=== PATIENT | male | born 1960 | race Caucasian/White ===

== ENCOUNTER → 2016-04-28 | Outpatient (CLI) | payer MEDICAID ==
[~2016-04-28] MED LIST: AUGMENTIN 875-1 EACH PO; CLARITIN 10MG T10 MG PO; CYCLOBENZAPRINE10 M3 PO; FLONASE 50 MCG16 GM; GABAPENTIN300 M1 PO; HYDROCODONE BIT1 T39 PO; HYDROCODONE-APA1 TA1 PO; HYDROCODONE-APA1 TA2 PO; LISINOPRIL10 MG PO; LORTAB 5/500 501 TAB PO; MEDROL 4MG. DOSE4 MG PO; NEURONTIN600 M1 PO; NORCO 325 MG-51 TAB PO; PREDNISONE 20MG20 MG PO; REGLAN5 MG/ML PO; XANAX 1MG TABLET1 MG PO; ZITHROMAX Z PA250 MG PO; ZITHROMAX Z-PA250 M2 PO; ZOFRAN ODT4 MG PO
[2016-04-28 14:20] LABS: BUN 12 mg/dL (7-18)
[2016-04-28 14:42] LABS: GFR (ESTIMATED) 70 ML/MIN (>60)
[2016-04-28 17:25] LABS: HEMOGLOBIN 14.1 g/dL (14.1-18.0); LYMPH % 36.7 % (10-50)
[2016-04-28 17:26] LABS: LYMPH # 1.5 K/mm3 (0.7-4.5)
== END ==
LOC: LAB 12:51
PROVIDERS: Surgery
DX: Z01.810 Encounter for preprocedural cardiovascular examination (principal); Z01.812 Encounter for preprocedural laboratory examination

== ENCOUNTER 2016-07-13 10:46 | Emergency (ER) | payer MEDICAID ==
[~2016-07-13] VITALS: Ht 175.3 cm; Wt 83.9 kg
[~2016-07-13 10:46] MED LIST changes: -CLARITIN 10MG T10 MG PO; -FLONASE 50 MCG16 GM; -LISINOPRIL10 MG PO; -MEDROL 4MG. DOSE4 MG PO; -ZITHROMAX Z PA250 MG PO; -ZOFRAN ODT4 MG PO
[2016-07-13] MEDS ORDERED: MEDROL 4MG. DOSE4 MG PO (11:07)
[2016-07-13] MEDS ORDERED: ZITHROMAX Z PA250 MG PO (11:07)
[2016-07-13] MEDS ORDERED: ZOFRAN ODT4 MG PO (11:07)
--- NOTE | 2016-07-13 11:07 | Urgent Treatment Center Report ---
History of Present Issue Date/Time Seen by Provider 07/13/16 1059 Visit Reason Pt arrived:Walked Presenting Problem:PT C/O NAUSEA X4 DAYS AND UNABLE TO GET INTO PCP. Location if Accident: Onset of symptoms date/time:/ or onset unknown for:MEDICAL HX UNKNOWN Have you (or family members/close friends) recently traveled outside the [place]? N If Yes, where/when: Have you had exposure to infectious disease within the past month? TB? Other? Specify: Patient state that he has been having nausea epecially in the mornings when he wakes up. States that he has been having some drainage and pain from his sinuses. States that he just feels bad and he thought he would get feeling better but now he is on day 4 and he isn't so he came in to get checked ALLERGIES Coded Allergies: codeine (S-BLISTERING WELTS 04/26/15) Home Medications Active Scripts HYDROCODONE/ACETAMINOPHEN (Hydrocodon-Acetaminoph 7.5-325) 1 TAB PO TID #90 TAB Prov: 12/14/15 Gabapentin (Neurontin) 600 MG PO TID #90 TAB Prov: 12/14/15 Reported Medications Alprazolam (Xanax 1MG) 1 MG PO BID History Medical History General CAD? No Angina: Yes CO: No Hypertension? No Hyperlipidemia? No CHF? No DVT? No PE? No COPD? No Asthma? No Anemia? No GERD? No Gastric ulcers? No GI Bleed? No Hernia? No Thyroid Problems? No Hypothyroidism? No CVA? No Seizures? No Diabetes? No UTI? No Stones? No BPH? No GB Disease: No Nephritic Syndrome? No Asplenia? No Hepatitis? No Sickle Cell Disease? No Arthritis? Yes Migraines? No Cataracts? No Glaucoma? No MRSA? No HIV? No TB? No Anxiety? Yes Depression? No Cancer? No More? No Immunization HX DT/Tetanus 2006 Surgical Hx Previous Surgery?Y SHOULDER Social History Smoking Hx Smoker: Current Every Day Smoker Tobacco: Yes Type Cigarettes Packs/day N/A Alcohol Alcohol: No Review of Systems All Other Systems Reviewed and Negative ENT nose discharge. Gastrointestinal nausea Physical Exam Vital Signs Vital Signs Date Time Temp Pulse Resp B/P Pulse O2 O2 Flow FiO2 Ox Delivery Rate 07/13 1054 98.0 88 22 133/90 99 General Appearance Patient appears ill, sitting on exam table Ear, Nose, Throat sinus pain/drainage, nasal congestion, Pain noted over maxillary sinus area with greenish color mucous, throat slightly red irritated with drainage noted in back of throat Respiratory Status Yes: trachea midline, chest symmetrical, non tender chest. No: respiratory distress. 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 No Departure Departure Time of Disposition 1104 Disposition DC Home or Self Care(routine) Clinical Impression Primary Impression: Upper respiratory infection Qualifiers: URI type: unspecified URI Qualified Code: J06.9 - Acute upper respiratory infection, unspecified Secondary Impressions: Nausea Condition STABLE Referrals Barbara ROBERTS,Law Starr (Family) Patient Instructions DI for Nausea -- Adult, DI for Sinusitis Additional Instructions Drink plenty of fluids Over the counter Motrin or Tylenol as needed for fever or pain Follow up with family doctor if no improvement in symptoms Return if needed Discharge Counseling Counseled pt/family regarding diagnosis, medications/RX, home care, follow up needs Prescriptions Current Visit Scripts Azithromycin (Zithromycin (Z-TANI) 250MG Tab) 250 MG PO DAILY #6 TAB TAKE TWO (2) TABLETS ON DAY 1, THEN ONE (1) TABLET DAY #2 THRU #5 Methylprednisolone (Medrol Dose Tani) 4 MG PO UD #1 TANI TAKE DIRECTED ON PACKAGING Ondansetron (Zofran 4MG Odt) 4 MG PO Q6HP PRN NAUSEA AND VOMITING #20 TAB at 1110
[2016-07-13 11:15] VITALS: BP 133/90
[2016-07-20] MEDS ORDERED: LISINOPRIL10 MG PO (09:29)
[2016-07-20] MEDS ORDERED: FLONASE 50 MCG16 GM (10:00)
[2016-07-20] MEDS ORDERED: ZOFRAN ODT4 MG PO (10:00)
[2016-07-20] MEDS ORDERED: CLARITIN 10MG T10 MG PO (10:00)
== END 2016-07-13 11:17 | disposition home or self-care (01) ==
LOC: UTC 10:46
DX: J06.9 Acute upper respiratory infection, unspecified (principal); Z72.0 Tobacco use

== ENCOUNTER → 2016-08-04 | Outpatient (CLI) | payer MEDICAID ==
[~2016-08-04] MED LIST changes: +CLARITIN 10MG T10 MG PO; +FLONASE 50 MCG16 GM; +LISINOPRIL10 MG PO; +MEDROL 4MG. DOSE4 MG PO; +ZITHROMAX Z PA250 MG PO; +ZOFRAN ODT4 MG PO
--- NOTE | 2016-08-04 13:51 | RADIOLOGY REPORT PS360 ---
US RUQ-(ABD LTD)1ORGAN/QUAD/FU HISTORY: The reviewed the RUQ PAIN ORDERING PHYSICIAN: Law Jimenez MD PATIENT AGE: 55 years COMPARISON: None FINDINGS: PANCREAS:Unremarkable as visualized LIVER:No focal liver lesions demonstrated. Homogeneous echogenicity. No intrahepatic biliary ductal dilatation evident RIGHT KIDNEY:Unremarkable. Normal size and echogenicity. No hydronephrosis GALLBLADDER:No gallstones or pericholecystic fluid. There is mild thickening of the gallbladder wall nonspecific. Common bile duct is normal at 3 mm. IMPRESSION: Mild gallbladder wall thickening otherwise negative right upper quadrant ultrasound
== END ==
LOC: RAD 08:00
DX: R10.11 Right upper quadrant pain (principal)

== ENCOUNTER → 2016-12-19 | Outpatient (CLI) | payer MEDICAID ==
[~2016-12-19] MED LIST changes: +AMOXICILLIN875 MG PO; +BOT OP; +WELLBUTRIN 100100 MG PO; +ZOFRAN4 MG PO; +[UNRECOGNIZED DRUG - OTHER] OP
[2016-12-19 19:12] LABS: AMPHETAMINES/METAMPHETAMINES NEGATIVE ng/mL (<1000)
== END ==
LOC: LAB 17:00
PROVIDERS: Emergency Medicine
DX: Z79.899 Other long term (current) drug therapy (principal)

== ENCOUNTER → 2017-01-04 | Outpatient (CLI) | payer MEDICAID ==
--- NOTE | 2017-01-04 15:26 | RADIOLOGY REPORT PS360 ---
CT SINUS (MAX-FACIAL W/O CONT) COMPARISON: CT scan paranasal sinuses 01/20/2016 HISTORY: Nasal septal deviation TECHNIQUE: Multiaxial scans obtained of the maxillofacial bones and paranasal sinuses. Sagittal and coronal reformats were evaluated as well. FINDINGS: There is minimal focal mucoperiosteal thickening posterior aspects of both maxillary sinuses. There is moderate leftward bowing of the mid nasal septum. The O MU is patent bilaterally. There is a agustin bullosa right middle turbinate. Ethmoid and frontal sinuses are clear and the sphenoid sinuses clear. The mastoids are clear. IMPRESSION: Minimal chronic inflammatory changes of the maxillary sinuses, stable nasal septal deviation is noted
== END ==
LOC: RAD 13:51
DX: S03 Dislocation and sprain of joints and ligaments of head (principal)

== ENCOUNTER → 2017-01-19 | Outpatient (CLI) | payer MEDICAID ==
[~2017-01-19] MED LIST changes: +IBUPROFEN800 MG PO
[2017-01-19 13:24] LABS: AMPHETAMINES/METAMPHETAMINES NEGATIVE ng/mL (<1000)
== END ==
LOC: LAB 12:14
PROVIDERS: Emergency Medicine
DX: Z79.899 Other long term (current) drug therapy (principal)

== ENCOUNTER → 2017-02-16 | Outpatient (CLI) | payer MEDICAID ==
[2017-02-16 12:27] LABS: AMPHETAMINES/METAMPHETAMINES NEGATIVE ng/mL (<1000)
== END ==
LOC: LAB 11:43
PROVIDERS: Emergency Medicine
DX: Z79.899 Other long term (current) drug therapy (principal)

== ENCOUNTER 2017-03-07 16:32 | Emergency (ER) | payer MEDICAID ==
[~2017-03-07] VITALS: Ht 175.3 cm; Wt 86.2 kg
--- OUTSIDE RECORDS SUMMARY | 2017-03-07 16:45 | External Medical Summary Rpt | CCD ---
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 013 .0 ed 18:35 MCV RBC 03-18-2 90.8 fl 82.2-97 complet 013 .8 ed 18:35 MCH RBC 03-18-2 31.1 pg 27-31.2 complet Qn 013 ed Auto 18:35 MEAN 03-18-2 34.2 31.8-35 complet CORPUSC 013 g/dl .4 ed ULAR 18:35 HGB CONC RDW RBC -18-2 13.4 % 11.5-17 complet Auto 013 .5 ed 18:35 Platele 03-18-2 219 142-424 complet t Bld 013 K/mm3 ed Ql 18:35 Manual MEAN -18-2 7.3 fl 7.4-10. complet PLATELE 013 4 ed T 18:35 VOLUME Granulo -18-2 80.2 % 37.0-80 complet cytes 013 .0 ed Fr Bld 18:35 Auto LYMPH % 03-18-2 15.3 % 10-50 complet 013 ed 18:35 Monocyt 03-18-2 4.0 % 1.7-9.3 complet es Fr 013 ed Bld 18:35 Auto Eosinop 03-18-2 0.4 % 0.1-12. complet hil Fr 013 0 ed Bld 18:35 Auto Basophi 03-18-2 0.2 % 0.1-2.0 complet ls Fr 013 ed Bld 18:35 Auto Granulo 03-18-2 9.8 1.3-8.0 complet cytes # 013 K/mm3 ed Bld 18:35 Auto Lymphoc 03-18-2 1.9 0.7-4.5 complet ytes Fr 013 K/mm3 ed Bld 18:35 Auto Monocyt 03-18-2 0.5 0.1-1.0 complet es # 013 K/mm3 ed Bld 18:35 Auto Eosinop 18-2 0.1 0.0-0.4 complet hil # 013 K/mm3 ed Bld 18:35 Auto Basophi 18-2 0.0 0-0.2 complet ls # 013 K/MM3 ed Bld 18:35 Auto Encounters Encounter Start End Date Code Location Performer Type Date [facility] - 7 7 [facility] - 7 7 [facility] - 7 7 [facility] - 7 7 [facility] - 7 7 [facility] - 7 7 [facility] - [address] [facility] - 7 7 [facility] - 7 7 [facility] - [address] [facility] - 7 7 [facility] - 7 7 [facility] - 7 7 [facility] - 7 7 [facility] - 7 7 [facility] - 7 7 [facility] - 7 7 [facility] - 7 7 [facility] - 7 7 [facility] - 7 7 [facility] - 7 7 [facility] - 7 7 [facility] - [address] [facility] - 6 6 [facility] - 6 6 [facility] - 6 6 [facility] - 6 6 [facility] - 6 6 [facility] - 6 6 [facility] - 6 6 [facility] - 6 6 [facility] - 6 6 [facility] - 5 5 [facility] - 5 5 [facility] - 5 5 [facility] - 5 5 [facility] - 5 5 [facility] - 5 5 [facility] - 5 5 [facility] - 5 5 [facility] - 4 4 [facility] - 4 4 [facility] - 4 4 [facility] - 4 4 [facility] Emergency CHANTALE Jimenez MD (ER) 3 19:01 3 20:44 [facility]
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
--- OUTSIDE RECORDS SUMMARY | 2017-03-07 16:49 | External Medical Summary Rpt | CCD ---
Author Author , KACY Lanza KACY Address Unknown Phone [email or web address] Team Providers Care Photographic Equipment Inspector Name Role Phone [employer] Unavailable Unavailable INC, [employer] EDOUARD BLACKWOOD MD, PSC, Unavailable Unavailable EDOUARD BLACKWOOD MD, PSC [facility] Un[facility] Unavailable SERVICE, [facility] Unavailable Unavailable INC, [facility] Unavailable Unavailable [facility]PITAL P, [facility] RENDON PALMIRA, JULIETA PALMIRA Unavailable Unavailable [facility], Unavailable Unavailable [facility] Un[facility], [facility], [facility] HENNESSY, HENNESSY Unavailable Unavailable ALEXEY HOLM MD Unavailable Unavailable [facility], Unavailable Unavailable [facility], [facility] SC[facility] AN[facility], SCIJENNY Unavailable Unavailable [facility]G [facility] Unavailable Unavailable HOSPITALS, [facility] Purpose Continuity of Care Document - 09-24-2013 through 2016 Problems Code Diagnosis DOS Provider Status 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 [id number] OTHER LONG 01-19-2017 [facility] TERM PHYSICIANS CURRENT GROUP DRUG THERAPY H6903 PATULOUS 01-11-2017 [facility] EUSTACHIAN TUBE BILATERAL H833X3 NOISE 01-11-2017 [facility] EFFECTS ON PHYSICIANS INNER EAR GROUP BILATERAL H9313 TINNITUS 01-11-2017 [facility] BILATERAL PHYSICIANS GROUP J320 CHRONIC 01-11-2017 [facility] MAXILLARY PHYSICIANS SINUSITIS GROUP J342 DEVIATED 01-11-2017 [facility] NASAL PHYSICIANS SEPTUM GROUP [id number] DISLOCATION 01-04-2017 [facility] CART NOSE INC SUBSEQUENT ENCNTR J322 CHRONIC 12-25-2016 [facility] ETHMOIDAL PHYSICIANS SINUSITIS GROUP J321 CHRONIC 12-04-2016 [facility] FRONTAL [facility] SINUSITIS INC R5383 OTHER 11-20-2016 [facility] FATIGUE PHYSICIANS GROUP B349 VIRAL 11-07-2016 [facility]CTION [facility] UNSPECIFIED INC R0602 SHORTNESS 11-07-2016 [place] [facility] R0989 OTH SPEC SX 11-07-2016 [place] [facility] CIRC & RESP SYS Z720 TOBACCO USE 11-07-2016 [facility] I10 ESSENTIAL 10-25-2016 [facility] PRIMARY PHYSICIANS HYPERTENSIO GROUP N M792 NEURALGIA 10-25-2016 [facility] AND PHYSICIANS NEURITIS GROUP UNSPECIFIED G5603 CARPAL 10-16-2016 [facility] BILATERAL UPPER LIMBS H1013 ACUTE 10-11-2016 [facility]IC [facility] CONJUNCTIVI INC TIS BILATERAL H6122 IMPACTED 10-11-2016 [facility] LEFT EAR INC G77508 ACUTE & 10-11-2016 [facility]UTE [facility] ALLERGIC INC OTITS MEDIA LEFT EAR G5622 LESION OF 08-21-2016 [facility]PP[facility]ALS LIMB G5623 LESION OF 08-21-2016 [facility] SERV BILATERAL FOUNDATION UPPER LIMBS W75348 PAIN IN 08-21-2016 [facility] LEFT WRIST SERV FOUNDATION E05314 MUSCLE 08-21-2016 [facility] RIGHT HAND R200 ANESTHESIA 08-21-2016 [facility] SKIN [facility] R202 PARESTHESIA 08-21-2016 [facility] SKIN [facility] [id number] FALL ON AND 08-21-2016 [facility] SERV LADDER FOUNDATION SUBSEQUENT ENCOUNTER R1011 RIGHT UPPER 08-04-2016 [facility] R45947 PAIN IN 07-31-2016 [facility] LEFT HAND PHYSICIANS GROUP J309 ALLERGIC 07-20-2016 [facility]IS [facility] UNSPECIFIED INC R05 COUGH 07-20-2016 [facility] INC J069 ACUTE UPPER 07-13-2016 [facility] RESPIRATORY INC INFECTION UNSPECIFIED J99715 PAIN IN 07-03-2016 [facility] LEFT ARM PHYSICIANS GROUP G5602 CARPAL 06-26-2016 [employer] SY[employer] S INC LEFT UPPER LIMB R208 OTHER 06-26-2016 [facility] DISTURBANCE PHYSICIANS S OF SKIN GROUP SENSATION R079 CHEST PAIN 06-16-2016 [facility] UNSPECIFIED PHYSICIANS GROUP 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 UNSPECIFIED K635 POLYP OF 05-04-2016 [facility] COLON PHYSICIANS GROUP Z1211 ENCOUNTER 05-04-2016 [facility] SCREENING PHYSICIANS MALIGNANT GROUP NEOPLASM OF COLON O21999 ENCOUNTER 04-28-2016 [facility] AL CARIOVASCUL AR EXAM Q99392 ENCOUNTER 04-28-2016 [facility] P AL LABORATORY EXAM G8929 OTHER 03-25-2016 [facility] J690 PNEUMONITIS 03-25-2016 [facility] HOSPITALS OF FOOD AND VOMIT M545 LOW BACK 03-25-2016 [facility] R000 TACHYCARDIA 03-25-2016 [facility] UNSPECIFIED SERVICE R4182 ALTERED 03-25-2016 [facility] UNSPECIFIED R918 OTHER 03-25-2016 [facility] NONSPECIFIC SERV ABNORMAL FOUNDATION FINDING OF LUNG FIELD [id number] POISONING 03-25-2016 [facility] DERIVATIVES ACC INIT ENC [id number] POISONING 03-25-2016 [facility] OTHER SERV OPIOIDS [facility]OUNDATION ACCIDENTAL INIT ENC [id number] POISONING 03-25-2016 [facility] SYNTH MEDICAL NARCOTICS IMAGING ASS UNDETERM INIT ENC [id number] POISONING 03-25-2016 [facility] P UNDETERM INITIAL ENCNTR [id number] POISONING 03-25-2016 [facility] ACCIDENTAL INITIAL ENC [id number] POISONING 03-25-2016 [facility] P UNDETERM INITIAL ENC C748Y4S POISON OTH 03-25-2016 [facility] ANTIEPIL AMBULANCE SEDAT-HYPNO SERVICE T RX ACC INIT ENC [id number] POISN UNS 03-25-2016 [facility] RX MEDS BIO SERV SUBSTANCE FOUNDATION UNDET INIT ENC D6131ID UNSPECIFIED 01-27-2016 [place] [facility] WRIST HAND IMAGING ASS FINGERS INITIAL Y45678 HORDEOLUM 01-24-2016 RENDON PALMIRA EXTERNUM RIGHT UPPER EYELID O52782 EDEMA OF 01-21-2016 [facility] RIGHT ORBIT PHYSICIANS GROUP M7989 OTHER 01-21-2016 [facility] SPECIFIED PHYSICIANS SOFT TISSUE GROUP DISORDERS G59104 CELLULITIS 01-20-2016 [facility] RIGHT PHYSICIANS, [facility] PLLC R51 HEADACHE 01-20-2016 [facility] M5416 RADICULOPAT 12-14-2015 [facility] LUMBAR MEM HOS[facility] REGION INC M4806 SPINAL 09-27-2015 EDOUARD BATEMANX, STENOSIS , [facility] LUMBAR REGION M5136 OT 09-14-2015 [facility] INTERVERTEB [employer] RAL DISC S INC DEGEN LUMBAR REGION M519 UNS THOR 09-14-2015 [facility] THORACOLUMB [employer] AR S INC LUMBOSACRAL IV DISC D/O M4726 OT 09-07-2015 [facility] SPONDYL[facility]IS [facility] W/RADICULOP ATHY LUMBAR REGION Z0389 ENCOUNTER 09-07-2015 [place] OBSERV OT MEDICAL SUSPCT DZ & IMAGING ASS COND RULED OUT E663 OVERWEIGHT 08-23-2015 [facility] G629 POLYNEUROPA 08-23-2015 [facility] THY PHYSICIANS UNSPECIFIED GROUP D49573L UNSPECIFIED 07-20-2015 [facility]OUND [facility] LEFT FOOT INC INITIAL ENCNTR M7061 TROCHANTERI 05-18-2015 [facility]IS [facility] RIGHT HIP INC M7062 TROCHANTERI 05-18-2015 [facility] LEFT HIP INC M7060 TROCHANTERI 04-26-2015 [facility] UNSPECIFIED INC HIP 92991 DEGEN 12-24-2014 [facility] LUMBAR/LUMB [facility] OSACRAL INC INTERVERTEB RAL DISC 4139 OTHER AND 10-20-2014 [facility] UNSPECIFIED [facility] ANGINA INC PECTORIS 4619 ACUTE 10-20-2014 [facility] SINUSITIS, MEM HOSP UNSPECIFIED INC 4739 UNSPECIFIED 10-20-2014 [facility] SINUSITIS PHYSICIANS, [facility] 7840 HEADACHE 10-20-2014 [facility] PHYSICIANS, [facility] 75950 ENTHESOPATH 10-09-2014 [facility] Y OF PHYSICIANS, UNSPECIFIED [facility] SITE 41393 OTHER 10-09-2014 [facility] TENOSYNOVIT [facility] IS OF HAND INC AND WRIST 7244 THORACIC/JEAN PAUL 10-05-2014 ALEXEY CARTER MD NEURITIS/RA DICULITIS UNSPEC 7265 ENTHESOPATH 10-05-2014 ALEXEY BLACKWOOD Y OF HIP MD REGION 21177 PRECORDIAL 08-13-2014 [facility] PAIN PHYSICIANS GROUP 78259 ABDOMINAL 07-30-2014 [facility] PAIN, PHYSICIANS EPIGASTRIC GROUP 7242 LUMBAGO 06-30-2014 [employer] S INC V573 CARE 06-30-2014 [facility]VING [facility] [place] [address] IMPOTENCE 05-22-2014 [facility] OF ORGANIC PHYSICIANS ORIGIN GROUP 52836 DISPLCMT 05-22-2014 [facility] 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 9300 FOREIGN 03-10-2014 JULIETA PALMIRA BODY IN CORNEA 7945 NONSPECIFIC 11-04-2013 [facility] RESULTS INC THYROID FUNCT STUDY 3674 PRESBYOPIA 11-01-2013 AUGIE ADAM 66408 PAIN IN 10-21-2013 [facility] JOINT, SITE MEM HOSP INC UNSPECIFIED V571 OTHER 09-30-2013 [facility] THERAPY INC Medications Na ND Rx Da Fi Fi [...] 10 1- 1- 00 06 TO ve WI 00 20 20 09 WN ED 50 [...] SL NT HI AN A GA 68 10 11 12 30 00 HO Ac BA 00 -1 -1 0. 00 ME ti PE 10 8- 7- 00 04 TO ve NT 00 20 20 0 02 WN IN 70 17 17 46 3 98 PH 80 AR 0 MA MG CY TA OF BL ET CY NT HI AN A LI 68 10 11 30 30 00 HO Ac SI 00 -1 -1 .0 00 ME ti NO 10 8- 7- 00 06 TO ve WI 26 20 20 09 WN IL 80 [...] 17 17 49 E 6 80 PH WI AR OP MA CY 50 OF MC [...] CY BL NT ET HI AN A GA 09 10 12 30 00 HO Ac BA 00 -1 -2 0. 00 ME ti PE 10 9- 0- 00 04 TO ve NT 00 20 20 0 02 WN IN 70 17 17 46 3 98 PH 80 AR 0 MA MG CY TA OF BL ET CY NT HI AN A BU 00 09 10 60 30 00 HO Ac WI 59 -1 -2 .0 00 ME ti OP 13 9- 0- 00 06 TO ve IO 54 20 20 09 WN N 10 17 17 45 HC 5 83 PH L AR SR MA CY 15 0 OF MG CY TA NT BL HI ET AN A HY 00 09 10 [address] 59 -2 -2 .0 00 ME ti OC 12 0- 0- 00 02 TO ve OD 60 20 20 01 WN ON 50 17 17 46 -A 1 70 PH CE AR TA MA [place] CY NO PH OF 7. CY 5- NT 32 HI 5 AN A ME 00 09 10 21 6 00 EA Ac TH 78 -0 -[address] ti YL 15 4- 6- 00 00 SI ve WI 02 20 20 50 DE ED 20 [...] NT ET HI AN A IN C LI 09 10 30 30 00 HO Ac SI 00 -0 -0 .0 00 ME ti NO 10 6- 6- 00 06 TO ve WI 26 20 20 09 WN IL 80 17 17 13 8 66 PH 10 AR MA MG CY TA OF BL ET CY NT HI AN A GA 08 09 12 30 00 HO Ac BA 00 -2 -2 0. 00 ME ti PE 10 1- 2- 00 04 TO ve NT 00 20 20 0 02 WN IN 70 17 17 38 3 84 PH 80 AR 0 MA MG CY TA OF BL ET CY NT HI AN A BU 08 09 60 30 00 HO Ac WI 00 -2 -2 .0 00 ME ti [...] 1 27 PH CE AR TA MA [place] CY NO PH OF 7. CY 5- NT 32 HI 5 AN A FL 50 08 09 16 30 00 HO Ac UT 38 -0 -0 .0 00 ME ti IC 30 8- 8- 00 06 TO ve 70 20 20 09 WN ON 01 17 17 20 E 6 60 PH WI AR OP MA CY 50 OF MC [...] BL CY ET NT HI AN A LI 68 07 08 30 30 00 HO Ac SI 00 -2 -2 .0 00 ME ti NO 10 0- 5- 00 06 TO ve WI 26 20 20 08 WN IL 80 17 17 60 8 51 PH 10 AR MA MG CY TA OF BL ET CY NT HI AN A GA 68 07 [...] 1 17 PH CE AR TA MA [place] CY NO PH OF 7. CY 5- NT 32 HI 5 AN A AM 00 07 08 20 [...] 17 17 05 E 6 60 PH WI AR OP MA CY 50 OF MC G CY SP NT RA HI Y AN A HY 00 06 07 [address] 59 -2 -2 .0 00 ME ti OC 12 7- 8- 00 02 TO ve OD 60 20 20 01 WN ON 50 17 17 39 -A 1 93 PH CE AR TA MA [place] CY NO PH OF 7. CY 5- [...] 17 17 54 E 6 50 PH WI AR OP MA CY 50 OF MC G CY SP NT RA HI Y AN A LI 68 05 06 30 30 00 HO Ac SI 00 -3 -3 .0 00 ME ti NO 10 0- 0- 00 06 TO ve WI 26 20 20 08 WN IL 80 [...] 1 70 PH CE AR TA MA [place] CY NO PH OF 7. CY 5- [...] ET CY NT HI AN A LI 68 05 06 30 30 00 HO Ac SI 00 -0 -0 .0 00 ME ti NO 10 1- 2- 00 06 TO ve WI 26 20 20 08 WN IL 80 [...] 1 34 PH CE AR TA MA [place] CY NO PH OF 7. CY 5- NT 32 HI 5 AN A LO 45 04 05 30 [...] 17 17 54 E 6 50 PH WI AR OP MA CY 50 OF MC [...] 10 3- 9- 00 06 TO ve WI 00 20 20 08 WN ED 50 17 17 50 NI 1 06 PH SO AR LO MA NE CY 4 OF MG CY DO NT SE HI PK AN A LI 68 04 05 30 30 00 HO Ac SI 00 -0 -0 .0 00 ME ti NO 10 4- 5- 00 06 TO ve WI 26 20 20 08 WN IL 80 [...] SL NT HI AN A HY 00 04 05 [address] 60 -0 -0 .0 00 ME ti OC 33 4- 5- 00 02 TO ve OD 89 20 20 01 WN ON 12 17 17 33 -A 8 13 PH CE AR TA MA [place] CY NO PH OF 7. CY 5- NT 32 HI 5 AN A GA 68 03 04 12 [...] 8 67 PH CE AR TA MA [place] CY NO PH OF 7. CY 5- [...] 00 6- 7- 00 06 TO ve WI 51 20 20 08 WN IL 40 17 17 27 3 07 PH 10 AR MA MG CY TA OF BL ET CY NT HI AN A GA 02 03 12 30 00 HO Ac [...] 8 02 PH CE AR TA MA [place] CY NO PH OF 7. CY 5- [...] CY NT SO HI LN AN A GA 01 02 12 30 00 HO Ac BA 00 -2 -2 0. 00 ME ti PE 10 3- 4- 00 06 TO ve NT 00 20 20 0 07 WN IN 70 17 17 99 3 79 PH 80 AR 0 MA MG CY TA OF BL ET CY NT HI AN A ME 68 01 02 30 30 00 HO Ac LO 38 -2 -2 .0 00 ME ti XI 20 3- 4- 00 06 TO ve CA 05 20 20 07 WN M 10 17 17 99 15 5 80 PH AR MG MA CY TA BL OF ET CY NT HI AN A LI 00 01 02 30 30 00 HO Ac SI 18 -1 -1 .0 00 ME ti NO 50 7- 7- 00 06 TO ve WI 61 20 20 07 WN IL 01 17 17 74 0 97 PH 10 AR MA MG CY TA OF BL ET CY NT HI AN A GA 01 02 45 15 00 HO Ac BA 00 -1 -1 .0 00 ME ti PE 10 0- 0- 00 06 TO ve NT 00 20 20 07 WN IN 60 17 17 92 3 47 PH 60 AR 0 MA MG CY TA OF BL ET CY NT HI AN A LI 00 12 01 30 30 00 HO Ac SI 18 -1 -1 .0 00 ME ti NO 50 3- 3- 00 06 TO ve WI 61 20 20 07 WN IL 01 16 17 74 0 97 PH 10 AR MA MG CY TA OF BL ET CY NT HI AN A ES 68 12 01 30 30 00 HO Ac CI 00 -1 -1 .0 00 ME ti TA 10 3- 3- 00 06 TO ve LO 19 20 20 07 WN WI 70 16 17 74 AM 3 98 [...] 12 01 63 21 00 HO Ac WI 76 -1 -1 .0 00 ME ti [...] 8 02 PH CE AR TA MA [place] CY NO PH OF 7. CY 5- NT 32 HI 5 AN A Encounters Encounter Start End Date Code Location Performer Type Date [facility] [address] [facility] 7 7 [facility] 7 7 [facility] - 7 7 [facility] - 7 7 [facility] - 7 7 [facility] - 7 7 [facility] - 7 7 [facility] - 7 7 [facility] - 7 7 [facility] - 7 7 [facility] - 7 7 [facility] - 7 7 [facility] - 7 7 [facility] - 7 7 [facility] 6 [facility] - 6 6 [facility] - 6 6 [facility] - 6 6 [facility] - 6 6 [facility] - 6 6 [facility] - 6 6 [facility] - 6 6 [facility] - 6 6 [facility] - 5 5 [facility] - 5 5 [facility] - 5 5 [facility] - 5 5 [facility] - 5 5 [facility] - 5 5 [facility] - 5 5 [facility] - 5 5 [facility] - 4 4 [facility] - 4 4 [facility] - 4 4 [facility] - 4 4 [facility]
--- OUTSIDE RECORDS SUMMARY | 2017-03-07 16:49 | External Medical Summary Rpt | CCD ---
Author Author , KACY Lanza KACY Address Unknown Phone [email or web address] Team Providers Care Spray Dyer Name Role Phone [employer] Unavailable Unavailable INC, [employer] EDOUARD BLACKWOOD MD, P[facility], Unavailable Unavailable EDOUARD BLACKWOOD MD, PSC [facility] Unavailable SERVICE, [facility] Unavailable Unavailable INC, [facility] Unavailable [facility]available HOSPITAL P, [facility] RENDON PALMIRA, JULIETA PALMIRA Unavailable Unavailable [facility], Unavailable Unavailable [facility] Un[facility] Un[facility], [facility], [facility] HENNESSY, HENNESSY Unavailable Unavailable ALEXEY HOLM MD Unavailable Unavailable [facility], Unavailable Unavailable [facility], [facility], SCIJENNY Unavailable Unavailable ANG [facility] Unavailable Unavailable HOSPITALS, [facility] Purpose Continuity of Care Document - 09-24-2013 through 2016 Problems Code Diagnosis DOS Provider Status 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 [id number] OTHER LONG 01-19-2017 [facility] TERM PHYSICIANS CURRENT GROUP DRUG THERAPY H6903 PATULOUS 01-11-2017 H[facility] EUSTACHIAN TUBE BILATERAL H833X3 NOISE 01-11-2017 [facility] EFFECTS ON PHYSICIANS INNER EAR GROUP BILATERAL H9313 TINNITUS 01-11-2017 [facility] BILATERAL PHYSICIANS GROUP J320 CHRONIC 01-11-2017 [facility] MAXILLARY PHYSICIANS SINUSITIS GROUP J342 DEVIATED 01-11-2017 [facility] NASAL PHYSICIANS SEPTUM GROUP [id number] DISLOCATION 01-04-2017 [facility] CART NOSE INC SUBSEQUENT ENCNTR J322 CHRONIC 12-25-2016 [facility] ETHMOIDAL PHYSICIANS SINUSITIS GROUP J321 CHRONIC 12-04-2016 [facility] FRONTAL [facility] SINUSITIS INC R5383 OTHER 11-20-2016 [facility] FATIGUE PHYSICIANS GROUP B349 VIRAL 11-07-2016 [facility]CTION [facility] UNSPECIFIED INC R0602 SHORTNESS 11-07-2016 [place] [facility] R0989 OTH SPEC SX 11-07-2016 [place] [facility] CIRC & RESP SYS Z720 TOBACCO USE 11-07-2016 [facility] INC I10 ESSENTIAL 10-25-2016 [facility] PRIMARY PHYSICIANS HYPERTENSIO GROUP N M792 NEURALGIA 10-25-2016 [facility] AND PHYSICIANS NEURITIS GROUP UNSPECIFIED G5603 CARPAL 10-16-2016 [facility] BILATERAL UPPER LIMBS H1013 ACUTE 10-11-2016 [facility]IC [facility] CONJUNCTIVI INC TIS BILATERAL H6122 IMPACTED 10-11-2016 [facility]EN [facility] LEFT EAR INC D39417 ACUTE & 10-11-2016 [facility]UTE [facility] ALLERGIC INC OTITS MEDIA LEFT EAR G5622 LESION OF 08-21-2016 [facility]PPER [facility]OSPITALS LIMB G5623 LESION OF 08-21-2016 [facility] ULNAR NERVE SERV BILATERAL FOUNDATION UPPER LIMBS K98014 PAIN IN 08-21-2016 [facility] LEFT WRIST SERV FOUNDATION S01206 MUSCLE 08-21-2016 [facility] RIGHT HAND R200 ANESTHESIA 08-21-2016 [facility] SKIN [facility] R202 PARESTHESIA 08-21-2016 [facility] SKIN [facility] [id number] FALL ON AND 08-21-2016 [facility] L[facility] SUBSEQUENT ENCOUNTER R1011 RIGHT UPPER 08-04-2016 [facility] D19207 PAIN IN 07-31-2016 [facility] LEFT HAND PHYSICIANS GROUP J309 ALLERGIC 07-20-2016 [facility]IS [facility] UNSPECIFIED INC R05 COUGH 07-20-2016 [facility] INC J069 ACUTE UPPER 07-13-2016 [facility] RESPIRATORY INC INFECTION UNSPECIFIED Q34933 PAIN IN 07-03-2016 [facility] LEFT ARM PHYSICIANS GROUP G5602 CARPAL 06-26-2016 [employer] [employer] SYNDROME S INC LEFT UPPER LIMB R208 OTHER 06-26-2016 [facility] DISTURBANCE PHYSICIANS S OF SKIN GROUP SENSATION R079 CHEST PAIN 06-16-2016 [facility] UNSPECIFIED PHYSICIANS GROUP D126 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 GROUP UNSPECIFIED K635 POLYP OF 05-04-2016 [facility] COLON PHYSICIANS GROUP Z1211 ENCOUNTER 05-04-2016 [facility] SCREENING PHYSICIANS MALIGNANT GROUP NEOPLASM OF COLON O38143 ENCOUNTER 04-28-2016 [facility] P AL CARIOVASCUL AR EXAM W22943 ENCOUNTER 04-28-2016 [facility] P AL LABORATORY EXAM G8929 OTHER 03-25-2016 [facility] J690 PNEUMONITIS 03-25-2016 [facility] IN[facility]ATION HOSPITALS OF FOOD AND VOMIT M545 LOW BACK 03-25-2016 [facility] R000 TACHYCARDIA 03-25-2016 [facility] UNSPECIFIED SERVICE R4182 ALTERED 03-25-2016 [facility] UNSPECIFIED R918 OTHER 03-25-2016 [place] [facility] NONSPECIFIC SERV ABNORMAL FOUNDATION FINDING OF LUNG FIELD [id number] POISONING 03-25-2016 [facility] DERIVATIVES ACC INIT ENC L639P8K POISONING 03-25-2016 [place] [facility] OTHER SERV OPIOIDS [facility]OUNDATION ACCIDENTAL INIT ENC [id number] POISONING 03-25-2016 [facility] SYNTH MEDICAL NARCOTICS IMAGING ASS UNDETERM INIT ENC [id number] POISONING 03-25-2016 [facility] P UNDETERM INITIAL ENCNTR [id number] POISONING 03-25-2016 [facility] [place] [facility] [employer] SSD ACCIDENTAL INITIAL ENC [id number] POISONING 03-25-2016 [facility] P UNDETERM INITIAL ENC [id number] POISON OTH 03-25-2016 [facility] ANTIEPIL AMBULANCE SEDAT-HYPNO SERVICE T RX ACC INIT ENC H48635R POISN UNS 03-25-2016 [place] [facility] BIO SERV SUBSTANCE FOUNDATION UNDET INIT ENC L8043TM UNSPECIFIED 01-27-2016 [facility] IN[facility]ICAL WRIST HAND IMAGING ASS FINGERS INITIAL M66364 HORDEOLUM 01-24-2016 R[facility] PALMIRA EXTERNUM RIGHT UPPER EYELID I63275 EDEMA OF 01-21-2016 [facility] RIGHT ORBIT PHYSICIANS GROUP M7989 OTHER 01-21-2016 [facility] SPECIFIED PHYSICIANS SOFT TISSUE GROUP DISORDERS O68184 CELLULITIS 01-20-2016 [facility] RIGHT PHYSICIANS, ORBIT PLLC R51 HEADACHE 01-20-2016 [facility] M5416 RADICULOPAT 12-14-2015 [facility] LUMBAR MEM HOS[facility] REGION INC M4806 SPINAL 09-27-2015 EDOUARD BATEMANX, STENOSIS , [facility] LUMBAR REGION M5136 OT 09-14-2015 [facility] INTERVERTEB [employer] RAL DISC S INC DEGEN LUMBAR REGION M519 UNS THOR 09-14-2015 [facility] THORACOLUMB [employer]NOLOGIE AR S INC LUMBOSACRAL IV DISC D/O M4726 OT 09-07-2015 [facility] SPONDYLOSIS [facility] W/RADICULOP ATHY LUMBAR REGION Z0389 ENCOUNTER 09-07-2015 [facility] OBSERV OT MEDICAL SUSPCT DZ & IMAGING ASS COND RULED OUT E663 OVERWEIGHT 08-23-2015 [facility] G629 POLYNEUROPA 08-23-2015 [facility] THY PHYSICIANS UNSPECIFIED GROUP [id number] UNSPECIFIED 07-20-2015 [facility]OUND [facility] LEFT FOOT INC INITIAL ENCNTR M7061 TROCHANTERI 05-18-2015 [facility]URS[facility]IS [facility] RIGHT HIP INC M7062 TROCHANTERI 05-18-2015 [facility] LEFT HIP INC M7060 TROCHANTERI 04-26-2015 [facility]IS [facility] UNSPECIFIED INC HIP 13253 DEGEN 12-24-2014 [facility] LUMBAR/LUMB [facility] OSACRAL INC INTERVERTEB RAL DISC 4139 OTHER AND 10-20-2014 [facility] UNSPECIFIED [facility] ANGINA INC PECTORIS 4619 ACUTE 10-20-2014 [facility] SINUSITIS, MEM HOSP UNSPECIFIED INC 4739 UNSPECIFIED 10-20-2014 [facility] SINUSITIS PHYSICIANS, [facility] 7840 HEADACHE 10-20-2014 [facility] PH[facility]IC[facility], [facility] 66104 ENTHESOPATH 10-09-2014 [facility] Y OF PHYSICIANS, UNSPECIFIED [facility] SITE 16023 OTHER 10-09-2014 [facility] TENOSYNOVIT [facility] IS OF HAND INC AND WRIST 7244 THORACIC/JEAN PAUL 10-05-2014 ALEXEY CARTER MD NEURITIS/RA DICULITIS UNSPEC 7265 ENTHESOPATH 10-05-2014 ALEXEY BLACKWOOD Y OF HIP MD REGION 22463 PRECORDIAL 08-13-2014 [facility] PAIN PHYSICIANS GROUP 39214 ABDOMINAL 07-30-2014 [facility] PAIN, PHYSICIANS EPIGASTRIC GROUP 7242 LUMBAGO 06-30-2014 [employer] S INC V573 CARE 06-30-2014 [facility] INVOLVING [facility] [place] [address] IMPOTENCE 05-22-2014 [facility] OF ORGANIC PHYSICIANS ORIGIN GROUP 10909 DISPLCMT 05-22-2014 [facility] 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 9300 FOREIGN 03-10-2014 JULIETA PALMIRA BODY IN [place]NE[place] 7945 NONSPECIFIC 11-04-2013 [facility]NORM [facility] RESULTS INC THYROID FUNCT STUDY 3674 PRESBYOPIA 11-01-2013 AUGIE ADAM 29159 PAIN IN 10-21-2013 [facility] JOINT, SITE MEM HOSP INC UNSPECIFIED V571 OTHER 09-30-2013 [facility]ICAL [facility] THERAPY INC Medications Na [...] 10 1- 1- 00 06 TO ve WY 00 20 20 09 WN ED 50 [...] 10 8- 7- 00 06 TO ve WY 26 20 20 09 WN IL 80 [...] 17 17 49 E 6 80 PH WY AR OP MA CY 50 OF MC [...] 09 10 60 30 00 HO Ac WY 59 -1 -2 .0 00 ME ti [...] 1 70 PH CE AR TA MA IN CY NO PH OF 7. CY 5- NT 32 HI 5 AN A ME 00 09 10 21 6 00 EA Ac TH 78 -0 -[address] ti YL 15 4- 6- 00 00 SI ve WY 02 20 20 50 DE ED 20 [...] 10 6- 6- 00 06 TO ve WY 26 20 20 09 WN IL 80 [...] 08 09 60 30 00 HO Ac WY 00 -2 -2 .0 00 ME ti [...] 1 27 PH CE AR TA MA IN CY NO PH OF 7. CY 5- NT 32 HI 5 AN A FL 50 08 09 16 30 00 HO Ac UT 38 -0 -0 .0 00 ME ti IC 30 8- 8- 00 06 TO ve 70 20 20 09 WN ON 01 17 17 20 E 6 60 PH WY AR OP MA CY 50 OF MC [...] 10 0- 5- 00 06 TO ve WY 26 20 20 08 WN IL 80 [...] 1 17 PH CE AR TA MA IN CY NO PH OF 7. CY 5- [...] 17 17 05 E 6 60 PH WY AR OP MA CY 50 OF MC G CY SP NT RA HI Y AN A HY 00 06 07 [address] 59 -2 -2 .0 00 ME ti OC 12 7- 8- 00 02 TO ve OD 60 20 20 01 WN ON 50 17 17 39 -A 1 93 PH CE AR TA MA IN CY NO PH OF 7. CY 5- [...] 17 17 54 E 6 50 PH WY AR OP MA CY 50 OF MC G CY SP NT RA HI Y AN A LI 68 05 06 30 30 00 HO Ac SI 00 -3 -3 .0 00 ME ti NO 10 0- 0- 00 06 TO ve WY 26 20 20 08 WN IL 80 [...] 1 70 PH CE AR TA MA IN CY NO PH OF 7. CY 5- [...] 10 1- 2- 00 06 TO ve WY 26 20 20 08 WN IL 80 [...] 1 34 PH CE AR TA MA IN CY NO PH OF 7. CY 5- [...] 17 17 54 E 6 50 PH WY AR OP MA CY 50 OF MC [...] 10 3- 9- 00 06 TO ve WY 00 20 20 08 WN ED 50 17 17 50 NI 1 06 PH SO AR LO MA NE CY 4 OF MG CY DO NT SE HI PK AN A LI 68 04 05 30 30 00 HO Ac SI 00 -0 -0 .0 00 ME ti NO 10 4- 5- 00 06 TO ve WY 26 20 20 08 WN IL 80 [...] 8 13 PH CE AR TA MA IN CY NO PH OF 7. CY 5- [...] 8 67 PH CE AR TA MA IN CY NO PH OF 7. CY 5- [...] 00 6- 7- 00 06 TO ve WY 51 20 20 08 WN IL 40 [...] 8 02 PH CE AR TA MA IN CY NO PH OF 7. CY 5- [...] 50 7- 7- 00 06 TO ve WY 61 20 20 07 WN IL 01 [...] 50 3- 3- 00 06 TO ve WY 61 20 20 07 WN IL 01 16 17 74 0 97 PH 10 AR MA MG CY TA OF BL ET CY NT HI AN A ES 68 12 01 30 30 00 HO Ac CI 00 -1 -1 .0 00 ME ti TA 10 3- 3- 00 06 TO ve LO 19 20 20 07 WN WY 70 16 17 74 AM 3 98 [...] 12 01 63 21 00 HO Ac WY 76 -1 -1 .0 00 ME ti [...] 8 02 PH CE AR TA MA IN CY NO PH OF 7. CY 5- NT 32 HI 5 AN A Encounters Encounter Start End Date Code Location Performer Type Date [facility] - 7 7 [facility] 7 [facility] 7 7 [facility] - 7 7 [facility] - 7 7 [facility] - 7 7 [facility] 7 7 [facility] - 7 7 [facility] - 7 7 [facility] - 7 7 [facility] - 7 7 [facility] - 7 7 [facility] - 7 7 [facility] - 7 7 [facility] - 7 7 [facility] - 7 7 [facility] - 7 7 [facility] - 7 7 [facility] - 7 7 [facility] - 7 7 [facility] - 7 7 [facility] - 6 6 [facility] - 6 6 [facility] - 6 6 [facility] - 6 6 [facility] - 6 6 [facility] - 6 6 [facility] - 6 6 [facility] - 6 6 [facility]PAT[facility] - 5 5 [facility] - 5 5 [facility] - 5 5 [facility] - 5 5 [facility] - 5 5 [facility] - 5 5 [facility] - 5 5 [facility] - 5 5 [facility] - 4 4 [facility] - 4 4 [facility] - 4 4 [facility] OUTPATIEN INC [facility] - 4 4 [facility]
--- OUTSIDE RECORDS SUMMARY | 2017-03-07 16:50 | External Medical Summary Rpt | CCD ---
Demographics Preferred Language Sami Marital Status Unknown Yarsanism Affiliation Unknown Race Unknown Ethnic Group Unknown Author Author , KACY WOODRUFF Address Unknown Phone Immunization No patient found.
--- OUTSIDE RECORDS SUMMARY | 2017-03-07 16:50 | External Medical Summary Rpt ---
Author Author [facility] Gomes, [employer] Organization [employer] Address Unknown Phone Unavailable Results Drugs identified in Urine by Screen method Observa Value Referen Units Interpr Notes Date tion ce etation Range Positive urine drug screen samples are stored for 7 days. Contact the Lab if confirmation of positives is needed. Ampheta NEGATIV <1000 ng/mL No No Feb 16 mine E informa informa 2017 [Presen tion in tion in 10:05 ce] in source source AM Urine data data by Screen method Barbitura <200 ng/mL No No Feb 16 [place] informati informati 2016 [Mass/vol on in on in 10:05 AM ume] in source source Urine by data data Screen method Benzodiaz 200 ng/mL ng/mL No No Feb 16 epines informati informati 2016 [Mass/vol on in on in 10:05 AM ume] in source source Serum or data data Plasma by Screen method Cocaine <300 ng/g No No Feb 16 [Mass/vol informati informati 2016 ume] in on in on in 10:05 AM Unspecifi source source ed data data specimen Methadone <300 ng/mL No No Feb 16 informati informati 2016 [Mass/vol on in on in 10:05 AM ume] in source source Unspecifi data data ed specimen Opiates <300 ng/mL High This is Feb 16 [Mass/vol an 2016 ume] in UNCONFIRM 10:05 AM Unspecifi ED ed result. specimen This result is for medicalpu rposes and/or treatment only. Phencycli <25 ng/mL No No Feb 16 dine informati informati 2016 [Mass/vol on in on in 10:05 AM ume] in source source Unspecifi data data ed specimen 11-Hydr POSITIV <50 ng/mL Abnorma This is Feb 16 oxy E l an 2017 delta-9 UNCONFI 10:05 RMED AM tetrahy result. drocann This abinol result [Presen is for ce] in medical Unspeci purpose fied s specime and/or n treatme nt only. Drugs identified in Urine by Screen method Observa Value Referen Units Interpr Notes Date tion ce etation Range Positive urine drug screen samples are stored for 7 days. Contact the Lab if confirmation of positives is needed. Ampheta NEGATIV <1000 ng/mL No No Jan 19 mine E informa informa 2017 [Presen tion in tion in 10:00 ce] in source source AM Urine data data by Screen method Barbitura <200 ng/mL No No Jan 19 [place] informati informati 2016 [Mass/vol on in on in 10:00 AM ume] in source source Urine by data data Screen method Benzodiaz 200 ng/mL ng/mL No No Jan 19 epines informati informati 2016 [Mass/vol on in on in 10:00 AM ume] in source source Serum or data data Plasma by Screen method Cocaine <300 ng/g No No Jan 19 [Mass/vol informati informati 2016 ume] in on in on in 10:00 AM Unspecifi source source ed data data specimen Methadone <300 ng/mL No No Jan 19 informati informati 2016 [Mass/vol on in on in 10:00 AM ume] in source source Unspecifi data data ed specimen Opiates <300 ng/mL High This is Jan 19 [Mass/vol an 2016 ume] in UNCONFIRM 10:00 AM Unspecifi ED ed result. specimen This result is for medicalpu rposes and/or treatment only. Phencycli <25 ng/mL No No Jan 19 dine informati informati 2016 [Mass/vol on in on in 10:00 AM ume] in source source Unspecifi data data ed specimen 11-Hydr NEGATIV <50 ng/mL No No Jan 19 oxy E informa informa 2017 delta-9 tion in tion in 10:00 source source AM tetrahy data data drocann abinol [Presen ce] in Unspeci fied specime n Drugs identified in Urine by Screen method Observa Value Referen Units Interpr Notes Date tion ce etation Range Positive urine drug screen samples are stored for 7 days. Contact the Lab if confirmation of positives is needed. Ampheta NEGATIV <1000 ng/mL No No Dec 19 mine E informa informa 2017 [Presen tion in tion in 5:02 PM ce] in source source Urine data data by Screen method Barbitura <200 ng/mL No No Sep 19 [place] informati informati 2017 5:02 [Mass/vol on in on in PM ume] in source source Urine by data data Screen method Benzodiaz 200 ng/mL ng/mL No No Sep 19 epines informati informati 2016 5:02 [Mass/vol on in on in PM ume] in source source Serum or data data Plasma by Screen method Cocaine <300 ng/g No No Sep 19 [Mass/vol informati informati 2016 5:02 ume] in on in on in PM Unspecifi source source ed data data specimen Methadone <300 ng/mL No No Sep 19 informati informati 2016 5:02 [Mass/vol on in on in PM ume] in source source Unspecifi data data ed specimen Opiates <300 ng/mL High This is Sep [Mass/vol an 2016 5:02 ume] in UNCONFIRM PM Unspecifi ED ed result. specimen This result is for medicalpu rposes and/or treatment only. Phencycli <25 ng/mL No No Sep 19 dine informati informati 2016 5:02 [Mass/vol on in on in PM ume] in source source Unspecifi data data ed specimen 11-Hydr NEGATIV <50 ng/mL No No Sep oxy E informa informa 2017 delta-9 tion in tion in 5:02 PM source source tetrahy data data drocann abinol [Presen ce] in Unspeci fied specime n CBC W Auto Differential panel in Blood Observa Value Referen Units Interpr Notes Date tion ce etation Range Basophils 0 - 0.2 K/MM3 Normal No Nov 20 inform2016 [#/volume on in 12:08 PM ] in source Blood by data Automated count Basophils 0.1 - 2.0 % Normal No Nov 20 inform2016 leukocyte on in 12:08 PM s in source Blood by data Automated count Eosinophi 0.0 - 0.4 K/mm3 Normal No Nov 20 ls 2016 [#/volume on in 12:08 PM ] in source Blood by data Automated count Eosinophi 0.1 - % Normal No Nov 20 ls/100 12.0 2016 leukocyte on in 12:08 PM s in source Blood by data Automated count Granulocy 1.3 - 8.0 K/mm3 Normal No Nov 20 [place] inform2016 [#/volume on in 12:08 PM ] in source Blood by data Automated count Granulocy 37.0 - % Normal No Nov 20 [place]/100 80.0 2016 leukocyte on in 12:08 PM s in source Blood by data Automated count Hematocri 42.0 - % Normal No Nov 20 t [Volume 52.0 2016 on in 12:08 PM Fraction] source of Blood data Hemoglobi 14.1 - g/dL Normal No Nov 20 n 18.0 informati 2016 [Mass/vol on in 12:08 PM ume] in source Blood data Lymphocyt 0.7 - 4.5 K/mm3 Normal No Nov 20 es 2016 [#/volume on in 12:08 PM ] in source Unspecifi data ed specimen by Automated count Lymphocyt 10 - 50 % Normal No Nov 20 es 2016 [#/volume on in 12:08 PM ] in source Unspecifi data ed specimen by Automated count Erythrocy 27 - 31.2 pg High No Nov 20 te mean 2016 corpuscul on in 12:08 PM ar source hemoglobi data n [Entitic mass] Erythrocy 31.8 - g/dl Normal No Nov 20 te mean 35.4 2016 corpuscul on in 12:08 PM ar source hemoglobi data n concentra tion [Mass/vol ume] by Automated count Erythrocy 82.2 - fl Normal No Nov 20 te mean 97.8 2016 corpuscul on in 12:08 PM ar volume source [Entitic data volume] by Automated count Monocytes 0.1 - 1.0 K/mm3 Normal No Nov 202016 [#/volume on in 12:08 PM ] in source Blood by data Automated count Monocytes 1.7 - 9.3 % Normal No Nov 20 /100 inform2016 leukocyte on in 12:08 PM s in source Blood by data Automated count Platelet 7.4 - fl Low No Nov 20 mean 10.4 2016 volume on in 12:08 PM [Entitic source volume] data in Blood by Automated count Platelets 142 - 424 K/mm3 Normal No Nov 202016 [#/volume on in 12:08 PM ] in source Blood data Erythrocy 4.6 - 6.2 M/mm3 Normal No Nov 20 [place] informati 2016 [#/volume on in 12:08 PM ] in source Amniotic data fluid Erythrocy 11.5 - % Normal No Nov 20 te 17.5 ati 2016 distribut on in 12:08 PM ion width source [Entitic data volume] by Automated count Leukocyte 4.8 - K/MM3 Normal No Nov 20 s 10.8 informati 2016 [#/volume on in 12:08 PM ] in source Blood data Erythrocyte sedimentation rate by Westergren method Observa Value Referen Units Interpr Notes Date tion ce etation Range Erythrocy 0 - 20 mm/hr Normal No Nov 20 te 2016 sedimenta on in 12:08 PM tion rate source by data Westergre n method Drugs identified in Urine by Screen method Observa Value Referen Units Interpr Notes Date tion ce etation Range Positive urine drug screen samples are stored for 7 days. Contact the Lab if confirmation of positives is needed. Ampheta NEGATIV <1000 ng/mL No No Nov 20 mine E informa informa 2016 [Presen tion in tion in 11:00 ce] in source source AM Urine data data by Screen method Barbitura <200 ng/mL No No Nov 20 [place] informati informati 2016 [Mass/vol on in on in 11:00 AM ume] in source source Urine by data data Screen method Benzodiaz 200 ng/mL ng/mL No No Nov 20 epines informati informati 2016 [Mass/vol on in on in 11:00 AM ume] in source source Serum or data data Plasma by Screen method Cocaine <300 ng/g No No Nov 20 [Mass/vol informati informati 2016 ume] in on in on in 11:00 AM Unspecifi source source ed data data specimen Methadone <300 ng/mL No No Nov 20 informati informati 2016 [Mass/vol on in on in 11:00 AM ume] in source source Unspecifi data data ed specimen Opiates <300 ng/mL High This is Nov 20 [Mass/vol an 2016 ume] in UNCONFIRM 11:00 AM Unspecifi ED ed result. specimen This result is for medicalpu rposes and/or treatment only. Phencycli <25 ng/mL No No Nov 20 dine informati informati 2016 [Mass/vol on in on in 11:00 AM ume] in source source Unspecifi data data ed specimen 11-Hydr NEGATIV <50 ng/mL No No Oct 21 oxy E informa informa 2017 delta-9 tion in tion in 11:00 source source AM tetrahy data data drocann abinol [Presen ce] in Unspeci fied specime n CBC W Auto Differential panel in Blood Observa Value Referen Units Interpr Notes Date tion ce etation Range Basophils 0 - 0.2 K/MM3 Normal No Oct 8 informati 2016 1:00 [#/volume on in PM ] in source Blood by data Automated count Basophils 0.1 - 2.0 % Normal No Oct 8 /100 informati 2017 1:00 leukocyte on in PM s in source Blood by data Automated count Eosinophi 0.0 - 0.4 K/mm3 Normal No Nov 07 ls informati 2016 1:00 [#/volume on in PM ] in source Blood by data Automated count Eosinophi 0.1 - % Normal No Nov 07 ls/100 12.0 informati 2016 1:00 leukocyte on in PM s in source Blood by data Automated count Granulocy 1.3 - 8.0 K/mm3 Normal No Nov 07 [place] informati 2016 1:00 [#/volume on in PM ] in source Blood by data Automated count Granulocy 37.0 - % Normal No Nov 07 tierney/100 80.0 informati 2016 1:00 leukocyte on in PM s in source Blood by data Automated count Hematocri 42.0 - % Normal No Nov 07 t [Volume 52.0 informati 2016 1:00 on in PM Fraction] source of Blood data Hemoglobi 14.1 - g/dL Normal No Nov 07 n 18.0 informati 2016 1:00 [Mass/vol on in PM ume] in source Blood data Lymphocyt 0.7 - 4.5 K/mm3 Normal No Nov 07 es informati 2016 1:00 [#/volume on in PM ] in source Unspecifi data ed specimen by Automated count Lymphocyt 10 - 50 % Normal No Nov 07 es informati 2016 1:00 [#/volume on in PM ] in source Unspecifi data ed specimen by Automated count Erythrocy 27 - 31.2 pg High No Nov 07 te mean informati 2016 1:00 corpuscul on in PM ar source hemoglobi data n [Entitic mass] Erythrocy 31.8 - g/dl Normal No Nov 07 te mean 35.4 informati 2016 1:00 corpuscul on in PM ar source hemoglobi data n concentra tion [Mass/vol ume] by Automated count Erythrocy 82.2 - fl Normal No Oct 8 te mean 97.8 informati 2016 1:00 corpuscul on in PM ar volume source [Entitic data volume] by Automated count Monocytes 0.1 - 1.0 K/mm3 Normal No Oct 8 informati 2016 1:00 [#/volume on in PM ] in source Blood by data Automated count Monocytes 1.7 - 9.3 % Normal No Oct 8 /100 informati 2016 1:00 leukocyte on in PM s in source Blood by data Automated count Platelet 7.4 - fl Low No Nov 07 mean 10.4 informati 2016 1:00 volume on in PM [Entitic source volume] data in Blood by Automated count Platelets 142 - 424 K/mm3 Normal No Oct 8 inform2016 1:00 [#/volume on in PM ] in source Blood data Erythrocy 4.6 - 6.2 M/mm3 Normal No Oct 8 tier[place] informati 2016 1:00 [#/volume on in PM ] in source Amniotic data fluid Erythrocy 11.5 - % Normal No Nov 07 te 17.5 informati 2016 1:00 distribut on in PM ion width source [Entitic data volume] by Automated count Leukocyte 4.8 - K/MM3 Normal No Oct 8 s 10.8 informati 2016 1:00 [#/volume on in PM ] in source Blood data Basic metabolic panel in Blood Observa Value Referen Units Interpr Notes Date tion ce etation Range Urea 7 - 18 mg/dL Normal No Nov 07 nitrogen informati 2016 1:00 [Mass/vol on in PM ume] in source Serum or data Plasma Calcium 8.5 - mg/dL Normal No Nov 07 [Mass/vol 10.1 informati 2016 1:00 ume] in on in PM Serum or source Plasma data Chloride 98 - 107 mmoL/L Normal No Nov 07 [Moles/vo informati 2016 1:00 lume] in on in PM Serum or source Plasma data Carbon 21.0 - mmoL/L Normal No Nov 07 dioxide, 32.0 informati 2016 1:00 total on in PM [Moles/vo source lume] in data Serum or Plasma Creatinin 0.70 - mg/dL Normal No Nov 07 e 1.30 informati 2016 1:00 [Mass/vol on in PM ume] in source Serum or data Plasma Creatinin 50 - 200 ML/MIN Normal No Nov 07 e renal informati 2016 1:00 clearance on in PM source predicted data by Cockcroft -Gault formula Estimated >60 ML/MIN No REFERENCE Nov 07 informati RANGE: 2017 1:00 glomerula on in >60 PM r source ML/MIN/1. filtratio data 73 SQUARE n rate METERSIf (GF this patient is -A merican, then multiply theresult by 1.210. Glucose 74 - 106 mg/dL Normal No Nov 07 [Mass/vol informati 2016 1:00 ume] in on in PM Serum or source Plasma data Potassium 3.5 - 5.1 mmoL/L Normal No Nov 07ati 2016 1:00 [Moles/vo on in PM lume] in source Serum or data Plasma Sodium 136 - 145 mmoL/L Normal No Nov 07 [Moles/vo informati 2016 1:00 lume] in on in PM Serum or source Plasma data Drugs identified in Urine by Screen method Observa Value Referen Units Interpr Notes Date tion ce etation Range Positive urine drug screen samples are stored for 7 days. Contact the Lab if confirmation of positives is needed. Ampheta NEGATIV <1000 ng/mL No No Oct 25 mine E informa informa 2016 [Presen tion in tion in 9:45 AM ce] in source source Urine data data by Screen method Barbitura <200 ng/mL No No Oct 25 [place] informati informati 2016 9:45 [Mass/vol on in on in AM ume] in source source Urine by data data Screen method Benzodiaz 200 ng/mL ng/mL No No Oct 25 epines informati informati 2016 9:45 [Mass/vol on in on in AM ume] in source source Serum or data data Plasma by Screen method Cocaine <300 ng/g No No Oct 25 [Mass/vol informati informati 2017 9:45 ume] in on in on in AM Unspecifi source source ed data data specimen Methadone <300 ng/mL No No Oct 25 informati informati 2016 9:45 [Mass/vol on in on in AM ume] in source source Unspecifi data data ed specimen Opiates <300 ng/mL High This is Oct 25 [Mass/vol an 2017 9:45 ume] in UNCONFIRM AM Unspecifi ED ed result. specimen This result is for medicalpu rposes and/or treatment only. Phencycli <25 ng/mL No No Oct 25 dine informati informati 2016 9:45 [Mass/vol on in on in AM ume] in source source Unspecifi data data ed specimen 11-Hydr NEGATIV <50 ng/mL No No Oct 25 oxy E informa informa 2017 delta-9 tion in tion in 9:45 AM source source tetrahy data data drocann abinol [Presen ce] in Unspeci fied specime n Hemoglobin A1c in Blood Observa Value Referen Units Interpr Notes Date tion ce etation Range Hemoglo 4.7 0.0 - % Normal < 6% Sep 26 bin A1c 7.0 NON-NEREIDA 2017 in BETIC 10:00 Blood LEVEL< AM 7% CONTROL LED DIABETI C LEVEL> 8% POORLY CONTROL LED DIABETI C LEVEL Comprehensive metabolic 2000 panel in Serum or Plasma Observa Value Referen Units Interpr Notes Date tion ce etation Range Albumin/G 1.1 - 1.8 No Normal No Sep 26 lobulin informati informati 2016 [Mass on in on in 10:00 AM ratio] in source source Serum or data data Plasma Albumin 3.4 - 5.0 gm/dL Normal No Sep 26 [Mass/vol informati 2016 ume] in on in 10:00 AM Serum or source Plasma data Alkaline 46 - 116 U/L Normal No Sep 26 phosphata informati 2016 se on in 10:00 AM [Enzymati source c data activity/ volume] in Serum or Plasma Bilirubin 0.2 - 1.0 mg/dL Normal No Sep 26 .total informati 2016 [Mass/vol on in 10:00 AM ume] in source Serum or data Plasma Urea 7 - 18 mg/dL High No Sep 26 nitrogen informati 2016 [Mass/vol on in 10:00 AM ume] in source Serum or data Plasma Calcium 8.5 - mg/dL Normal No Sep 26 [Mass/vol 10.1 informati 2016 ume] in on in 10:00 AM Serum or source Plasma data Chloride 98 - 107 mmoL/L Normal No Sep 26 [Moles/vo informati 2017 lume] in on in 10:00 AM Serum or source Plasma data Carbon 21.0 - mmoL/L Normal No Sep 26 dioxide, 32.0 inform2016 total on in 10:00 AM [Moles/vo source lume] in data Serum or Plasma Creatinin 0.70 - mg/dL High No Sep 26 e 1.30 informati 2016 [Mass/vol on in 10:00 AM ume] in source Serum or data Plasma Estimated >60 ML/MIN No REFERENCE Sep 26 informati RANGE: 2017 glomerula on in >60 10:00 AM r source ML/MIN/1. filtratio data 73 SQUARE n rate METERSIf (GF this patient is -A merican, then multiply theresult by 1.210. Globulin 1.3 - 3.2 gm/dL High No Sep 26 [Mass/vol informati 2016 ume] in on in 10:00 AM Serum source data Glucose 74 - 106 mg/dL Normal No Sep 26 [Mass/vol informati 2016 ume] in on in 10:00 AM Serum or source Plasma data Potassium 3.5 - 5.1 mmoL/L Normal No Sep 262016 [Moles/vo on in 10:00 AM lume] in source Serum or data Plasma Sodium 136 - 145 mmoL/L Normal No Sep 26 [Moles/vo informati 2016 lume] in on in 10:00 AM Serum or source Plasma data Aspartate 15 - 37 U/L Low No Sep 262016 aminotran on in 10:00 AM sferase source [Enzymati data c activity/ volume] in Serum or Plasma Alanine 12 - 78 U/L Normal No Sep 26 aminotran 2016 sferase on in 10:00 AM [Enzymati source c data activity/ volume] in Serum or Plasma Protein 6.4 - 8.2 gm/dL Normal No Sep 26 [Mass/vol informati 2016 ume] in on in 10:00 AM Serum or source Plasma data Lipid 1996 panel in Serum or Plasma Observa Value Referen Units Interpr Notes Date tion ce etation Range Cholester < 200 mg/dL No No Sep 26 ol informati informati 2016 [Moles/vo on in on in 10:00 AM lume] in source source Unspecifi data data ed specimen Cholester 40 - 60 MG/DL Normal No Sep 26 ol in HDL 2016 on in 10:00 AM [Mass/vol source ume] in data Serum or Plasma Cholester 0 - 130 mg/dL Normal No Sep 26 ol in LDL inform2016 on in 10:00 AM [Mass/vol source ume] in data Serum or Plasma by calculati on Triglycer 30 - 200 mg/dL Normal No Sep 26 tyshawn 2016 [Moles/vo on in 10:00 AM lume] in source Serum or data Plasma Cholester 0 - 40 No Normal No Sep 26 ol in informati inform2016 VLDL on in on in 10:00 AM [Mass/vol source source ume] in data data Serum or Plasma Thyroxine (T4) [Mass/volume] in Serum or Plasma Observa Value Referen Units Interpr Notes Date tion ce etation Range Thyroxine 4.7 - ug/dl Normal No Sep 26 (T4) 13.3 2016 [Mass/vol on in 10:00 AM ume] in source Serum or data Plasma Thyrotropin [Units/volume] in Serum or Plasma Observa Value Referen Units Interpr Notes Date tion ce etation Range Thyrotrop 0.358 - uIU/ml No No Sep 26 in 3.740 informati inform2016 [Units/vo on in on in 10:00 AM lume] in source source Serum or data data Plasma CBC W Auto Differential panel in Blood Observa Value Referen Units Interpr Notes Date tion ce etation Range Basophils 0 - 0.2 K/MM3 Normal No Sep 262016 [#/volume on in 10:00 AM ] in source Blood by data Automated count Basophils 0.1 - 2.0 % Normal No Sep 26 /2016 leukocyte on in 10:00 AM s in source Blood by data Automated count Eosinophi 0.0 - 0.4 K/mm3 Normal No Sep 26 ls 2016 [#/volume on in 10:00 AM ] in source Blood by data Automated count Eosinophi 0.1 - % Normal No Sep 26 ls/100 12.0 2016 leukocyte on in 10:00 AM s in source Blood by data Automated count Granulocy 1.3 - 8.0 K/mm3 Normal No Sep 26 tierney 2016 [#/volume on in 10:00 AM ] in source Blood by data Automated count Granulocy 37.0 - % Normal No Sep 26 [place]/100 80.0 2016 leukocyte on in 10:00 AM s in source Blood by data Automated count Hematocri 42.0 - % Normal No Sep 26 t [Volume 52.0 informati 2016 on in 10:00 AM Fraction] source of Blood data Hemoglobi 14.1 - g/dL No No Sep 26 n 18.0 informati informati 2016 [Mass/vol on in on in 10:00 AM ume] in source source Blood data data Lymphocyt 0.7 - 4.5 K/mm3 Normal No Sep 26 es informati 2016 [#/volume on in 10:00 AM ] in source Unspecifi data ed specimen by Automated count Lymphocyt 10 - 50 % Normal No Sep 26 es informati 2016 [#/volume on in 10:00 AM ] in source Unspecifi data ed specimen by Automated count Erythrocy 27 - 31.2 pg High No Sep 26 te mean inform2016 corpuscul on in 10:00 AM ar source hemoglobi data n [Entitic mass] Erythrocy 31.8 - g/dl Normal No Sep 26 te mean 35.4 inform2016 corpuscul on in 10:00 AM ar source hemoglobi data n concentra tion [Mass/vol ume] by Automated count Erythrocy 82.2 - fl High No Sep 26 te mean 97.8 informati 2016 corpuscul on in 10:00 AM ar volume source [Entitic data volume] by Automated count Monocytes 0.1 - 1.0 K/mm3 Normal No Sep 26 inform2016 [#/volume on in 10:00 AM ] in source Blood by data Automated count Monocytes 1.7 - 9.3 % Normal No Sep 26 /100 inform2016 leukocyte on in 10:00 AM s in source Blood by data Automated count Platelet 7.4 - fl Normal No Sep 26 mean 10.4 informati 2016 volume on in 10:00 AM [Entitic source volume] data in Blood by Automated count Platelets 142 - 424 K/mm3 Normal No Sep 26 informati 2016 [#/volume on in 10:00 AM ] in source Blood data Erythrocy 4.6 - 6.2 M/mm3 Normal No Sep 26 [place] informati 2016 [#/volume on in 10:00 AM ] in source Amniotic data fluid Erythrocy 11.5 - % Normal No Sep 26 te 17.5 informati 2016 distribut on in 10:00 AM ion width source [Entitic data volume] by Automated count Leukocyte 4.8 - K/MM3 Low No Sep 26 s 10.8 informati 2016 [#/volume on in 10:00 AM ] in source Blood data Drugs identified in Urine by Screen method Observa Value Referen Units Interpr Notes Date tion ce etation Range Positive urine drug screen samples are stored for 7 days. Contact the Lab if confirmation of positives is needed. Ampheta NEGATIV <1000 ng/mL No No Sep 26 mine E informa informa 2016 [Presen tion in tion in 10:00 ce] in source source AM Urine data data by Screen method Barbitura <200 ng/mL No No Sep 26 [place] informati informati 2016 [Mass/vol on in on in 10:00 AM ume] in source source Urine by data data Screen method Benzodiaz 200 ng/mL ng/mL No No Sep 26 epines informati informati 2016 [Mass/vol on in on in 10:00 AM ume] in source source Serum or data data Plasma by Screen method Cocaine <300 ng/g No No Sep 26 [Mass/vol informati informati 2017 ume] in on in on in 10:00 AM Unspecifi source source ed data data specimen Methadone <300 ng/mL No No Sep 26 informati informati 2016 [Mass/vol on in on in 10:00 AM ume] in source source Unspecifi data data ed specimen Opiates <300 ng/mL High This is Sep 26 [Mass/vol an 2016 ume] in UNCONFIRM 10:00 AM Unspecifi ED ed result. specimen This result is for medicalpu rposes and/or treatment only. Phencycli <25 ng/mL No No Sep 26 dine informati informati 2016 [Mass/vol on in on in 10:00 AM ume] in source source Unspecifi data data ed specimen 11-Hydr NEGATIV <50 ng/mL No No Sep 26 oxy E informa informa 2017 delta-9 tion in tion in 10:00 source source AM tetrahy data data drocann abinol [Presen ce] in Unspeci fied specime n Drugs identified in Urine by Screen method Observa Value Referen Units Interpr Notes Date tion ce etation Range Positive urine drug screen samples are stored for 7 days. Contact the Lab if confirmation of positives is needed. Ampheta NEGATIV <1000 ng/mL No No August 29 mine E informa informa 2017 [Presen tion in tion in 9:00 AM ce] in source source Urine data data by Screen method Barbitura <200 ng/mL No No August 29 [place] informati informati 2017 9:00 [Mass/vol on in on in AM ume] in source source Urine by data data Screen method Benzodiaz 200 ng/mL ng/mL No No August 29 epines informati informati 2016 9:00 [Mass/vol on in on in AM ume] in source source Serum or data data Plasma by Screen method Cocaine <300 ng/g No No August 29 [Mass/vol informati informati 2017 9:00 ume] in on in on in AM Unspecifi source source ed data data specimen Methadone <300 ng/mL No No August 29 informati informati 2017 9:00 [Mass/vol on in on in AM ume] in source source Unspecifi data data ed specimen Opiates <300 ng/mL High This is August 29 [Mass/vol an 2017 9:00 ume] in UNCONFIRM AM Unspecifi ED ed result. specimen This result is for medicalpu rposes and/or treatment only. Phencycli <25 ng/mL No No August 29 dine informati informati 2017 9:00 [Mass/vol on in on in AM ume] in source source Unspecifi data data ed specimen 11-Hydr NEGATIV <50 ng/mL No No August 29 oxy E informa informa 2017 delta-9 tion in tion in 9:00 AM source source tetrahy data data drocann abinol [Presen ce] in Unspeci fied specime n
--- OUTSIDE RECORDS SUMMARY | 2017-03-07 16:50 | External Medical Summary Rpt | CCD ---
Demographics Preferred Language Persian Marital Status Unknown Synagogue Affiliation Unknown Race Unknown Ethnic Group Unknown Author Author , KACY WOODRUFF Address Unknown Phone Immunization No patient found.
[2017-03-07 17:05] VITALS: BP 130/83
[2017-03-07] MEDS ORDERED: BACTRIM DS 8001 TA1 PO (17:05)
--- NOTE | 2017-03-07 17:05 | Urgent Treatment Center Report ---
History of Present Issue Date/Time Seen by Provider 03/07/17 1651 Visit Reason Pt arrived:Walked Presenting Problem:RED SPOT ON RT KNEE SINCE SUNDAY Location if Accident: Onset of symptoms date/time:/ or onset unknown for:MEDICAL HX UNKNOWN Have you (or family members/close friends) recently traveled outside the [place]? N If Yes, where/when: Have you had exposure to infectious disease within the past month? TB? Other? Specify: c/o red spot to right anterior knee. First noticed Sunday but since then, more red and more painful. Denies joint pain or fever. Started amoxicillin 875mg last night and has had two without any improvement. Denies hx of abscess, skin infections, staph or MRSA. Source patient Exam Limitations no limitations ALLERGIES Coded Allergies: codeine (S-BLISTERING WELTS 04/26/15) Home Medications Active Scripts Gabapentin (Neurontin) 600 MG PO TID #90 TAB Prov: 12/14/15 Reported Medications Alprazolam (Xanax 1MG) 1 MG PO BID Lisinopril 10 MG PO DAILY #30 Bupropion Hcl Sr (Wellbutrin 100MG Tab,Sr) 75 MG PO DAILY History Medical History General CAD? No Angina: Yes CO: No Hypertension? No Hyperlipidemia? No CHF? No DVT? No PE? No COPD? No Asthma? No Anemia? No GERD? No Gastric ulcers? No GI Bleed? No Hernia? No Thyroid Problems? No Hypothyroidism? No CVA? No Seizures? No Diabetes? No UTI? No Stones? No BPH? No GB Disease: No Nephritic Syndrome? No Asplenia? No Hepatitis? No Sickle Cell Disease? No Arthritis? Yes Migraines? No Cataracts? No Glaucoma? No MRSA? No HIV? No TB? No Anxiety? Yes Depression? No Cancer? No More? No Immunization HX DT/Tetanus 2006 Surgical Hx Previous Surgery?Y SHOULDER Social History Smoking Hx Smoker: Never Smoker Tobacco: No Packs/day N/A Alcohol Alcohol: No Review of Systems All Other Systems Reviewed and Negative (as appropriate for CC) Constitutional denies chills, denies malaise Gastrointestinal denies nausea, denies vomiting Musculoskeletal see HPI Skin see HPI, denies other (drainage) Psychiatric/Neurological denies numbness, denies tingling Physical Exam Vital Signs Vital Signs Date Time Temp Pulse Resp B/P Pulse O2 O2 Flow FiO2 Ox Delivery Rate 03/07 1705 88 16 130/83 99 03/07 1640 98.3 88 16 130/83 99 General Appearance normal appearance, no apparent distress Respiratory Status No: respiratory distress. Cardiovascular no peripheral edema Back gait normal Extremities non-tender (rt knee except abscess), normal range of motion (rt knee ), normal inspection (w/ exception of skin abscess) Strength 5 Lower Ext (L), 5 Lower Ext (R) Neurologic alert Skin skin abscess right anterior knee [id number] erythema w/ center 1mm scab, hot , tender, firm; no sign of joint involvement Medical Decision Making LABS/Meds/Orders Pt receiving controlled substance in ED? No Results/Orders Orders Procedure Date/time Status CULTURE, WOUND 03/07 1656 Active Departure Departure Time of Disposition 1701 Disposition DC Home or Self Care(routine) Clinical Impression Primary Impression: Abscess of right knee Condition STABLE Referrals Barbara ROBERTS,Law Starr (Family) Monitor closely. FU immediately for new or worsening symptoms ( including but not limited to redness, swelling, red streaking, fever, chills) AND on Sunday for possible wound cx results and wound check. Patient Instructions DI for Skin Abscess Additional Instructions * STOP amoxicillin. You should never have left over antibiotics and you should never start antibiotics before seen and told to do so as this increases your risk for antibiotic resistance!! * Start bactrim immediately and be sure to take as ordered for the FULL length of time although you should start to see improvement over the next 24-48 hours. * Monitor closely. FU immediately for new or worsening symptoms ( including but not limited to redness, swelling, red streaking, fever, chills). * Warm epsom salt compresses 15 min 3-4 times a day * never squeeze or pop these on your own. Seek immediate medical attention next time these occur. * Monitor Temp. Seek treatment if fever develops. * For pain/inflammation: Tylenol every 4 hours as needed no more then 5 times a day or 4000mg in 24 hours and/or ibuprofen every 6 hours as needed no more then 3200mg in 24 hours (as long as your primary care doctor has told you that it is ok to take both) for fever/aches/pain. ER if fever no less than 101 despite tylenol and ibuprofen Discharge Counseling Counseled pt/family regarding diagnosis, medications/RX, home care, follow up needs Prescriptions Current Visit Scripts SULFAMETHOXAZOLE W/TRIMETHOPRI (Bactrim Ds Tab) 1 TABLET PO BID #20 TAB at 1714
== END 2017-03-07 17:08 | disposition home or self-care (01) ==
LOC: UTC 16:32
DX: L02.415 Cutaneous abscess of right lower limb (principal)

== ENCOUNTER → 2017-03-16 | Outpatient (CLI) | payer MEDICAID ==
[~2017-03-16] MED LIST changes: +BACTRIM DS 8001 TA1 PO
[2017-03-16 19:12] LABS: AMPHETAMINES/METAMPHETAMINES NEGATIVE ng/mL (<1000)
== END ==
LOC: LAB 18:07
PROVIDERS: Emergency Medicine
DX: Z79.899 Other long term (current) drug therapy (principal)